=== PATIENT | female | born 1945 | race Caucasian/White ===

== ENCOUNTER 2020-07-02 08:43 | Observation (INO) ==
[2020-07-02] MEDS ORDERED: 0.9 % Sodium Chloride 1,000 ML ONE (08:52)
[2020-07-02] MEDS ORDERED: 0.9 % Sodium Chloride 1,000 ML IVC ONE (08:54)
[2020-07-02] MEDS ORDERED: Isovue-370 500 ML BOTTLE IVP ONE (09:12)
[2020-07-02 09:27] LABS: Basophils # 0.1 K/mcL (0.0-0.2); Basophils % 0.3 %; Eosinophils # 0.1 K/mcL (0.0-0.6); Eosinophils % 0.5 %; Hematocrit 38.8 % (35.3-44.9); Hemoglobin 11.5 g/dL (11.5-15.4); Immature Granulocytes % 0.7 % (0-4); Lymphocytes # 0.9 K/mcL (0.6-4.6); Lymphocytes % 4.9 %; Mean Corpuscular HGB Conc 29.6 g/dL (31.6-35.5); Mean Corpuscular Hemoglobin 24.7 pg (28.0-33.3); Mean Corpuscular Volume 83.3 fL (83.0-100.0); Mean Platelet Volume 9.2 fL (9.4-12.4); Monocytes # 1.6 K/mcL (0.0-1.3); Monocytes % 8.9 %; Neutrophils # 15.2 K/mcL (1.6-8.9); Platelet Count 321 K/mcL (140-400); Red Blood Count 4.66 M/mcL (3.82-4.97); Red Cell Distribution Width 15.8 % (11.5-14.5); Segmented Neutrophils % 84.7 %
[2020-07-02 09:51] LABS: Alanine Aminotransferase 16 Units/L (7-52); Albumin 4.1 g/dL (3.5-5.7); Albumin/Globulin Ratio 1.6 (1.1-2.2); Alkaline Phosphatase 58 Units/L (34-104); Aspartate Amino Transferase 18 Units/L (13-39); BUN/Creatinine Ratio 9 (6-26); Bilirubin,Total 0.4 mg/dL (0.3-1.0); Blood Urea Nitrogen 12 mg/dL (8-23); Calcium 10.1 mg/dL (8.6-10.3); Carbon Dioxide 25 mEq/L (23-29); Chloride 106 mEq/L (98-107); Globulin 2.6 g/dL (2.4-3.5); Glucose 189 mg/dL (70-105); Magnesium 2.3 mg/dL (1.6-2.6); Osmolality,Calculated 293 (280-300); Potassium 4.5 mEq/L (3.5-5.1); Sodium 139 mEq/L (136-145); Total Protein 6.7 g/dL (6.4-8.9); Troponin I < 0.03 ng/mL (< 0.04); eGFR For African Americans 48 (> 60); eGFR For Non-African Americans 40 (> 60)
[2020-07-02 10:03] LABS: Adenovirus Not Detected (Not Detect); Bordetella Pertussis Not Detected (Not Detect); Chlamydophila pneumoniae Not Detected (Not Detect); Coronavirus 229E Not Detected (Not Detect); Coronavirus HKU1 Not Detected (Not Detect); Coronavirus NL63 Not Detected (Not Detect); Coronavirus OC43 Not Detected (Not Detect); Human Metapneumovirus Not Detected (Not Detect); Human Rhinovirus/Enterovirus Not Detected (Not Detect); Influenza A Subtype 2009 H1 Not Detected (Not Detect); Influenza B Not Detected (Not Detect); Mycoplasma pneumoniae Not Detected (Not Detect); Parainfluenza Virus 1 Not Detected (Not Detect); Parainfluenza Virus 2 Not Detected (Not Detect); Parainfluenza Virus 3 Not Detected (Not Detect); Parainfluenza Virus 4 Not Detected (Not Detect); Respiratory Syncytial Virus Not Detected (Not Detect); SARS-CoV-2 Not Detected (Not Detect)
[2020-07-02] MEDS ORDERED: MethylPREDNISolone 40 MG/ML VIAL IVP ONE (10:09)
[2020-07-02] MEDS ORDERED: 0.9 % Sodium Chloride 1,000 ML IV ONE (10:15)
[2020-07-02] MEDS: Cefepime HCl 1,000 MG in 0.9 % Sodium Chloride Mini Bag 100 ML IVPB SCH ×2 (11:16→22:43)
[2020-07-02 12:09] LABS: Bilirubin,Urine Negative (Negative); Blood,Urine Negative (Negative); Clarity,Urine Clear (Clear); Color,Urine Light-Yellow (Yellow); Glucose,Urine (UA) Normal (Normal); Ketones,Urine Negative (Negative); Leukocyte Esterase,Urine Negative (Negative); Nitrite,Urine Negative (Negative); PH,Urine 7.5 pH Units (5.0-8.0); Protein,Urine Negative (Neg-Trace); Specific Gravity,Urine 1.008 (1.010-1.025); Urobilinogen,Urine Normal (Normal)
[2020-07-02] MEDS ORDERED: MetroNIDAZOLE 500 MG/100 ML 500 MG/100 ML BAG IVPB ONE (13:30)
[2020-07-02] MEDS ORDERED: Naloxone 0.4 MG/ML INJ IVP PRN (14:47)
[2020-07-02] MEDS ORDERED: Ondansetron 4 MG/2 ML VIAL IVP PRN (14:47)
[2020-07-02] MEDS: 0.9 % Sodium Chloride 1,000 ML IVC SCH (17:56)
[2020-07-02] MEDS: Piperacillin/Tazobactam 3.375 GM in 0.9 % Sodium Chloride Mini Bag 100 ML IVPB SCH (17:57)
[2020-07-02] MEDS ORDERED: Acetaminophen 325 MG TABLET PO PRN (19:45)
[2020-07-03] MEDS: Piperacillin/Tazobactam 3.375 GM in 0.9 % Sodium Chloride Mini Bag 100 ML IVPB SCH ×3 (00:10→15:00)
[2020-07-03] MEDS: 0.9 % Sodium Chloride 1,000 ML IVC SCH (03:27)
[2020-07-03 05:36] LABS: Basophils % 0.3 %; Hematocrit 31.1 % (35.3-44.9); Immature Granulocytes % 0.6 % (0-4); Lymphocytes # 1.3 K/mcL (0.6-4.6); Mean Corpuscular HGB Conc 30.2 g/dL (31.6-35.5); Mean Corpuscular Hemoglobin 24.9 pg (28.0-33.3); Mean Corpuscular Volume 82.3 fL (83.0-100.0); Mean Platelet Volume 9.6 fL (9.4-12.4); Monocytes % 9.5 %; Neutrophils # 8.1 K/mcL (1.6-8.9); Platelet Count 239 K/mcL (140-400); Red Blood Count 3.78 M/mcL (3.82-4.97); Red Cell Distribution Width 15.9 % (11.5-14.5); Segmented Neutrophils % 77.6 %; White Blood Count 10.4 K/mcL (4.3-11.1)
[2020-07-03 05:41] LABS: Hemoglobin 9.4 g/dL (11.5-15.4)
[2020-07-03 05:57] LABS: BUN/Creatinine Ratio 13 (6-26); Blood Urea Nitrogen 13 mg/dL (8-23); Calcium 8.6 mg/dL (8.6-10.3); Carbon Dioxide 24 mEq/L (23-29); Chloride 110 mEq/L (98-107); Glucose 135 mg/dL (70-105); Magnesium 2.1 mg/dL (1.6-2.6); Osmolality,Calculated 292 (280-300); Phosphorous 3.3 mg/dL (2.7-4.5); Potassium 3.8 mEq/L (3.5-5.1); Sodium 140 mEq/L (136-145); eGFR For African Americans > 60 (> 60); eGFR For Non-African Americans 55 (> 60)
[2020-07-03] MEDS ORDERED: Perflutren Lipid Microsphere 1.3 ML in 0.9 % Sodium Chloride 8.7 ML IVP PRN (15:27)
[2020-07-03 16:22] LABS: Hematocrit 33.3 % (35.3-44.9); Hemoglobin 10.1 g/dL (11.5-15.4)
[2020-07-03] MEDS ORDERED: SODIUM CHLORIDE/NAHCO3/KCL/PEG 4,000 ML SOLN.RECON PO ONE (17:00)
[2020-07-03] MEDS ORDERED: *HR* Heparin 5,000 UNIT/ML VIAL SQ SCH (18:00)
[2020-07-03 22:59] LABS: Hematocrit 33.7 % (35.3-44.9); Hemoglobin 10.1 g/dL (11.5-15.4)
[2020-07-04] MEDS: Piperacillin/Tazobactam 3.375 GM in 0.9 % Sodium Chloride Mini Bag 100 ML IVPB SCH ×2 (00:36→09:09)
[2020-07-04] MEDS ORDERED: Ascorbic Acid 500 MG TABLET PO SCH (09:00)
[2020-07-04] MEDS ORDERED: Cholecalciferol (D-3) 1,000 UNIT (25MCG) TABLET PO SCH (09:00)
[2020-07-04] MEDS ORDERED: Metoprolol XL (24 HR) Succ 25 MG TAB.ER.24H PO SCH (09:00)
[2020-07-04 10:49] LABS: Basophils # 0.1 K/mcL (0.0-0.2); Basophils % 0.8 %; Eosinophils # 0.1 K/mcL (0.0-0.6); Eosinophils % 1.4 %; Hematocrit 35.6 % (35.3-44.9); Hemoglobin 10.9 g/dL (11.5-15.4); Immature Granulocytes % 0.7 % (0-4); Lymphocytes # 1.4 K/mcL (0.6-4.6); Lymphocytes % 18.6 %; Mean Corpuscular HGB Conc 30.6 g/dL (31.6-35.5); Mean Corpuscular Hemoglobin 25.1 pg (28.0-33.3); Mean Corpuscular Volume 81.8 fL (83.0-100.0); Mean Platelet Volume 9.2 fL (9.4-12.4); Monocytes # 0.7 K/mcL (0.0-1.3); Monocytes % 9.6 %; Neutrophils # 5.1 K/mcL (1.6-8.9); Platelet Count 256 K/mcL (140-400); Red Blood Count 4.35 M/mcL (3.82-4.97); Red Cell Distribution Width 15.9 % (11.5-14.5); Segmented Neutrophils % 68.9 %; White Blood Count 7.4 K/mcL (4.3-11.1)
[2020-07-04 11:07] LABS: BUN/Creatinine Ratio 12 (6-26); Blood Urea Nitrogen 9 mg/dL (8-23); Carbon Dioxide 26 mEq/L (23-29); Chloride 107 mEq/L (98-107); Glucose 112 mg/dL (70-105); Magnesium 2.1 mg/dL (1.6-2.6); Osmolality,Calculated 291 (280-300); Phosphorous 2.8 mg/dL (2.7-4.5); Potassium 3.5 mEq/L (3.5-5.1); Sodium 141 mEq/L (136-145); eGFR For African Americans > 60 (> 60); eGFR For Non-African Americans > 60 (> 60)
[2020-07-04 14:31] VITALS: BP 177/82
[2020-07-04] MEDS ORDERED: *HR* Propofol 200 MG/20 ML VIAL IVP ONE (15:54)
[2020-07-04] MEDS ORDERED: *HR* Propofol 500 MG/50 ML BOTTLE IVP ONE (15:54)
[2020-07-04] MEDS ORDERED: Lidocaine -MPF 2% 5 ML VIAL SQ ONE (15:54)
== END 2020-07-04 15:55 | disposition home or self-care (01) ==
LOC: 3ANU 08:43 → EMEROOARM 08:43 → SUATTDRO 14:33 → 3ANU 16:28
PROVIDERS: ADMIT Internal Medicine; ATTEND Internal Medicine
PROC: ENDOCBX (2020-07-04 13:55)

== ENCOUNTER 2021-02-21 11:10 | Inpatient (IN) ==
[2021-02-21] MEDS ORDERED: 0.9 % Sodium Chloride 1,000 ML IVC ONE (11:32)
[2021-02-21 11:59] LABS: Hematocrit 31.5 % (35.3-44.9); Immature Granulocytes % 0.8 % (0-4); Lymphocytes % 5.5 %; Mean Corpuscular HGB Conc 31.7 g/dL (31.6-35.5); Mean Corpuscular Hemoglobin 24.8 pg (28.0-33.3); Mean Platelet Volume 10.3 fL (9.4-12.4); Monocytes % 12.7 %; Platelet Count 225 K/mcL (140-400); Red Blood Count 4.04 M/mcL (3.82-4.97); Red Cell Distribution Width 19.6 % (11.5-14.5); Segmented Neutrophils % 80.7 %; White Blood Count 16.9 K/mcL (4.3-11.1)
[2021-02-21 12:00] LABS: Basophils # 0.1 K/mcL (0.0-0.2); Basophils % 0.3 %; Lymphocytes # 0.9 K/mcL (0.6-4.6); Neutrophils # 13.6 K/mcL (1.6-8.9)
[2021-02-21 12:02] LABS: Monocytes # 2.2 K/mcL (0.0-1.3)
[2021-02-21 12:08] LABS: INR 1.4; Prothrombin Time 15.6 Seconds (9.4-12.1)
[2021-02-21 12:11] LABS: Activated Partial Thrombo Time 29.3 Seconds (26.0-36.0)
[2021-02-21 12:14] LABS: Bacteria,Urine Few per hpf (None-Few); Bilirubin,Urine Negative (Negative); Blood,Urine Moderate (Negative); Clarity,Urine Turbid (Clear); Color,Urine Yellow (Yellow); Glucose,Urine (UA) Normal (Normal); Granular Casts,Urine Few per lpf (None Seen); Hyaline Casts,Urine Few per lpf (None Seen); Ketones,Urine Trace mg/dL (Negative); Leukocyte Esterase,Urine Large (Negative); Mucus,Urine Few per lpf (None-Few); Nitrite,Urine Negative (Negative); Protein,Urine 100 mg/dL (Neg-Trace); RBC,Urine 15-30 per hpf (0-3); Renal Epithelial Cells,Urine Few per hpf (None-Few); Specific Gravity,Urine 1.024 (1.010-1.025); Squamous Epithelial Cell,Urine Few per hpf (None-Few); Transitional Epi Cells,Urine Few per hpf (None-Few); Urobilinogen,Urine Normal (Normal); WBC,Urine TNTC per hpf (0-3)
[2021-02-21 12:25] LABS: Amphetamine Screen,Urine Negative ng/mL (Cutoff=1000); Barbiturate Screen,Urine Negative ng/mL (Cutoff=200)
[2021-02-21 12:26] LABS: Albumin 3.7 g/dL (3.5-5.7); Albumin/Globulin Ratio 1.1 (1.1-2.2); Bilirubin,Direct 0.1 mg/dL (0.0-0.2); Bilirubin,Indirect 0.3 mg/dL (0.0-1.0); Bilirubin,Total 0.4 mg/dL (0.3-1.0); Calcium 8.7 mg/dL (8.6-10.3); Globulin 3.3 g/dL (2.4-3.5); Potassium 3.1 mEq/L (3.5-5.1); Troponin I 0.12 ng/mL (< 0.04)
[2021-02-21 12:27] LABS: Anisocytosis 1+ (Not Present); Platelet Estimate Normal (Normal)
[2021-02-21 12:27] LABS: Benzodiazepines Screen,Urine Negative ng/mL (Cutoff=300); Cannabinoid Screen,Urine Negative ng/mL (Cutoff = 50); Cocaine Screen,Urine Negative ng/mL (Cutoff= 300); Opiate Screen,Urine Negative ng/mL (Cutoff=300); Phencyclidine Screen,Urine Negative ng/mL (Cutoff=25)
[2021-02-21] MEDS ORDERED: Azithromycin 500 MG in 0.9 % Sodium Chloride 250 ML IVPB ONE (13:06)
[2021-02-21] MEDS ORDERED: cefTRIAXone 1,000 MG in 0.9 % Sodium Chloride Mini Bag 100 ML IVPB ONE (13:06)
[2021-02-21] MEDS ORDERED: Naloxone 0.4 MG/ML INJ IVP PRN (15:07)
[2021-02-21] MEDS ORDERED: Ondansetron 4 MG/2 ML VIAL IVP PRN (15:18)
[2021-02-21] MEDS: 0.9 % Sodium Chloride 1,000 ML IVC SCH (18:21)
[2021-02-22] MEDS ORDERED: Acetaminophen IV 1,000 MG/100 ML BAG IVPB ONE (02:56)
[2021-02-22 05:12] LABS: BUN/Creatinine Ratio 17 (6-26); Blood Urea Nitrogen 14 mg/dL (8-23); Carbon Dioxide 19 mEq/L (23-29); Chloride 102 mEq/L (98-107); Glucose 150 mg/dL (70-105); Osmolality,Calculated 277 (280-300); Potassium 3.1 mEq/L (3.5-5.1); Sodium 132 mEq/L (136-145); eGFR For African Americans > 60 (> 60); eGFR For Non-African Americans > 60 (> 60)
[2021-02-22 05:13] LABS: Basophils % 0.3 %; Eosinophils % 0.4 %; Hemoglobin 8.5 g/dL (11.5-15.4); Immature Granulocytes % 0.7 % (0-4); Lymphocytes # 0.9 K/mcL (0.6-4.6); Lymphocytes % 8.5 %; Mean Corpuscular HGB Conc 30.4 g/dL (31.6-35.5); Mean Corpuscular Hemoglobin 23.8 pg (28.0-33.3); Mean Corpuscular Volume 78.4 fL (83.0-100.0); Mean Platelet Volume 9.9 fL (9.4-12.4); Monocytes # 0.9 K/mcL (0.0-1.3); Neutrophils # 8.8 K/mcL (1.6-8.9); Platelet Count 185 K/mcL (140-400); Red Blood Count 3.57 M/mcL (3.82-4.97); Red Cell Distribution Width 19.8 % (11.5-14.5); Segmented Neutrophils % 82.1 %; White Blood Count 10.7 K/mcL (4.3-11.1)
[2021-02-22] MEDS: *HR* Enoxaparin 40 MG/0.4 ML SYRINGE SQ SCH (05:36)
[2021-02-22] MEDS: cefTRIAXone 1,000 MG in 0.9 % Sodium Chloride Mini Bag 100 ML IVPB SCH (08:06)
[2021-02-22] MEDS: 0.9 % Sodium Chloride 1,000 ML IVC SCH (08:06)
[2021-02-22] MEDS: Isosorbide MONOnitrate (24 HR) 30 MG TAB.ER.24H PO SCH (08:06)
[2021-02-22] MEDS ORDERED: Azithromycin 500 MG in 0.9 % Sodium Chloride 250 ML IVPB SCH (16:00)
[2021-02-23 05:30] LABS: Basophils % 0.5 %; Eosinophils # 0.2 K/mcL (0.0-0.6); Eosinophils % 2.3 %; Hematocrit 28.1 % (35.3-44.9); Hemoglobin 8.3 g/dL (11.5-15.4); Immature Granulocytes % 0.9 % (0-4); Lymphocytes % 14.8 %; Mean Corpuscular HGB Conc 29.5 g/dL (31.6-35.5); Mean Corpuscular Hemoglobin 24.1 pg (28.0-33.3); Mean Corpuscular Volume 81.4 fL (83.0-100.0); Mean Platelet Volume 10.5 fL (9.4-12.4); Monocytes # 0.5 K/mcL (0.0-1.3); Monocytes % 7.3 %; Neutrophils # 4.9 K/mcL (1.6-8.9); Platelet Count 172 K/mcL (140-400); Red Blood Count 3.45 M/mcL (3.82-4.97); Red Cell Distribution Width 20.5 % (11.5-14.5); Segmented Neutrophils % 74.2 %; White Blood Count 6.6 K/mcL (4.3-11.1)
[2021-02-23 05:45] LABS: BUN/Creatinine Ratio 18 (6-26); Blood Urea Nitrogen 14 mg/dL (8-23); Calcium 8.2 mg/dL (8.6-10.3); Carbon Dioxide 21 mEq/L (23-29); Chloride 109 mEq/L (98-107); Glucose 142 mg/dL (70-105); Osmolality,Calculated 287 (280-300); Potassium 3.3 mEq/L (3.5-5.1); Sodium 137 mEq/L (136-145); eGFR For African Americans > 60 (> 60); eGFR For Non-African Americans > 60 (> 60)
[2021-02-23] MEDS: *HR* Enoxaparin 40 MG/0.4 ML SYRINGE SQ SCH (06:27)
[2021-02-23] MEDS: Isosorbide MONOnitrate (24 HR) 30 MG TAB.ER.24H PO SCH (07:35)
[2021-02-23] MEDS: cefTRIAXone 1,000 MG in 0.9 % Sodium Chloride Mini Bag 100 ML IVPB SCH (07:35)
[2021-02-23 15:27] VITALS: BP 166/75; PULSE 91; TEMP 99.1; O2SAT 93
== END 2021-02-23 17:56 | disposition home health service (06) | DRG 871 ==
LOC: EMEROOARM 11:10 → 3ANU 15:11
PROVIDERS: ADMIT Pharmacist; ATTEND Pharmacist